=== PATIENT | male | born 1980 | race Two or more races ===

== ENCOUNTER 2024-01-11 11:05 | Inpatient (IN) | payer OTHER ==
[~2024-01-11] VITALS: Ht 188 cm; Wt 133.8 kg
[2024-01-11] MEDS ORDERED: NEXIUM10 MG (11:44)
--- NOTE | 2024-01-11 11:52 | NUR ---
PTE ALERTA Y ORIENTADO X3 REFIERE DOLOR ABDOMINAL DEL LADO DERECHO. PTE CON PULSO 125 Y SAT 93% AL MOMENTO DEL TRIAGE. SE REALIZA EKG Y SE PRESENTA A EL CUAL EVALUA Y FIRMA EL MISNO E INDICA COLOCARLO EN AREA DE OBSERACION. SE MIDEN S/V Y SE UBICA.
[2024-01-11] MEDS ORDERED: RINGERS SOLUTION,LACTATED 1,000 ML IV STA (12:37)
--- NOTE | 2024-01-11 12:57 | NUR ---
SE ORIENTA PTE SOBRE TX A SEGUIR, EL MISMO REFIERE ENTENDER. SE REMY MUESTRA DE LAB, SE CANALIZA Y COLOCA IV FLUIDS. PEND CT IV
[2024-01-11 13:24] LABS: HEMATOCRIT 45.1 % (39.0-48.0); HEMOGLOBIN 15.3 g/dL (13-16.00); MEAN CELL VOLUME 89.9 fL (80.0-100.00); MEAN CORPUSCULAR HEMOGLOBIN 30.5 pg (27.00-32.0); MEAN CORPUSCULAR HGB CONC 33.9 g/dl (32.0-36.0); PLATELET COUNT 228 K/uL (150-450); RED BLOOD COUNT 5.01 M/uL (4.00-6.00); RED CELL DISTRIBUTION WIDTH 13.6 % (11.5-14.5)
[2024-01-11 13:41] LABS: INR 1.06; PARTIAL THROMBOPLASTIN TIME 30.5 SECONDS (22.0-34.0); PROTHROMBIN TIME 11.1 SECONDS (9.0-11.5)
[2024-01-11 15:50] LABS: ALBUMIN 3.5 gm/dL (3.4-5.0); BILIRUBIN TOTAL 2.09 mg/dL (0.3-1.2); CALCIUM 9.3 mg/dL (8.5-10.1); CREATININE SERUM 0.85 mg/dL (0.70-1.30); GFR 98.85; GLOBULINA 4.5 G/DL (2.4-3.5); POTASSIUM 3.82 mEq/L (3.5-5.1)
[2024-01-11 15:54] LABS: URINE APPEARANCE Clear; URINE BILIRRUBIN Negative (NEGATIVE); URINE BLOOD Negative; URINE COLOR Yellow; URINE GLUCOSE Negative (NEGATIVE); URINE LEUKOCYTE Negative; URINE NITRATE Negative; URINE PROTEIN Negative (NEGATIVE)
[2024-01-11 15:58] LABS: URINE EPITHELIAL CELLS 2.1 uL (0.0-38.8); URINE RBC 26.2 uL (0.0-20.8); URINE WBC 4.4 uL (0.0-23.2)
[2024-01-11 16:53] LABS: AMYLASE 87 U/L (25-115); LIPASE 41 U/L (13-75)
[2024-01-11] MEDS ORDERED: 0.9 % SODIUM CHLORIDE 1,000 ML IV SCH (20:30)
[2024-01-11] MEDS ORDERED: PANTOPRAZOLE SODIUM 40 MG/VIAL VIAL IV SCH (20:56)
[2024-01-11] MEDS ORDERED: ACETAMINOPHEN 500 MG GEL..CAP PO PRN (21:00)
[2024-01-11] MEDS ORDERED: MEPERIDINE HCL/PF 25 MG/ML VIAL IM PRN (21:00)
[2024-01-11] MEDS ORDERED: CIPROFLOXACIN IN 5 % DEXTROSE 200 ML IV SCH (21:00)
[2024-01-11] MEDS ORDERED: HYOSCYAMINE SULFATE 0.125 MG TAB.SUBL PO ONE (21:00)
[2024-01-11] MEDS ORDERED: ONDANSETRON HCL 4 MG in 0.9 % SODIUM CHLORIDE 50 ML IV PRN (21:00)
[2024-01-11] MEDS ORDERED: HYOSCYAMINE SULFATE 0.125 MG TAB.SUBL ONE (21:44)
[2024-01-11 23:45] LABS: INR 1.04; PARTIAL THROMBOPLASTIN TIME 24.9 SECONDS (22.0-34.0); PROTHROMBIN TIME 10.9 SECONDS (9.0-11.5)
[2024-01-11 23:51] LABS: ALBUMIN 3.3 gm/dL (3.4-5.0); BILIRUBIN TOTAL 2.55 mg/dL (0.3-1.2); BILIRUBIN,CONJUGATED 0.56 mg/dL (0.0-0.2); BILIRUBIN,UNCONJUGATED 1.99 mg/dL (0.0-0.6); TOTAL PROTEIN 7.8 gm/dL (6.4-8.2)
[2024-01-11 23:58] LABS: C-REACTIVE PROTEIN 15.7 MG/DL (0.00-0.29)
[2024-01-12] MEDS ORDERED: METRONIDAZOLE/SODIUM CHLORIDE 100 ML IV SCH (01:00)
[2024-01-13 07:12] LABS: HEMATOCRIT 43.5 % (39.0-48.0); MEAN CELL VOLUME 88.1 fL (80.0-100.00); MEAN CORPUSCULAR HEMOGLOBIN 30.3 pg (27.00-32.0); MEAN CORPUSCULAR HGB CONC 34.5 g/dl (32.0-36.0); PLATELET COUNT 263 K/uL (150-450); RED BLOOD COUNT 4.94 M/uL (4.00-6.00); RED CELL DISTRIBUTION WIDTH 13.4 % (11.5-14.5)
[2024-01-13 07:28] LABS: ALBUMIN 3.2 gm/dL (3.4-5.0); BILIRUBIN TOTAL 1.87 mg/dL (0.3-1.2); CALCIUM 8.5 mg/dL (8.5-10.1); CREATININE SERUM 0.71 mg/dL (0.70-1.30); GFR 121.66; GLOBULINA 4.1 G/DL (2.4-3.5); POTASSIUM 3.9 mEq/L (3.5-5.1); TOTAL PROTEIN 7.3 gm/dL (6.4-8.2)
== END 2024-01-14 16:31 | disposition home or self-care (01) | DRG 440 ==
LOC: ER 11:06 → SEC-K 21:23 → MEDI 01-12 10:36
PROVIDERS: General Practice; ADMIT Internal Medicine; ATTEND Internal Medicine
PROC: BW21ZZZ Computerized Tomography (CT Scan) of Abdomen and Pelvis (ICD-10-PCS; principal; 2024-01-11)
DX: K85.90 Acute pancreatitis without necrosis or infection, unspecified (principal); K29.80 Duodenitis without bleeding